=== PATIENT | male | born 1975 | race Hispanic/Latino ===

== ENCOUNTER 2024-02-02 10:53 | Emergency (ER) | payer SELFPAY ==
[2024-02-02] MEDS ORDERED: Lidocaine 1% w/Epinephrine 1:100K 20 ML VIAL ONE (12:42)
[2024-02-02] MEDS ORDERED: CEFAZOLIN 1 GM VIAL ONE (12:42)
[2024-02-02] MEDS ORDERED: Boostrix 0.5 ML (Tdap) VIAL (>/=7 yrs of age) ONE (12:42)
[2024-02-02] MEDS ORDERED: Sterile Water 10 ML ONE (12:43)
[2024-02-02] MEDS ORDERED: Bacitracin 1 PK ONE (14:10)
== END 2024-02-02 14:45 | disposition home or self-care (01) ==
LOC: ERS 10:53
DX: S09.90XA Unspecified injury of head, initial encounter (principal); S01.01XA Laceration without foreign body of scalp, initial encounter; W22.8XXA Striking against or struck by other objects, initial encounter
CPT/HCPCS: 12001; 70450; 72125; 90471; 90715; 93005; 96372; J0690